=== PATIENT | female | born 1935 | race African-American/Black ===

== ENCOUNTER 2021-07-22 15:43 | Inpatient (IN) | payer OTHER, MEDICAID, SELFPAY ==
[2021-07-22] VITALS (7 sets, daily range): BP systolic 117–135; BP diastolic 51–76; PULSE 61–71; RESP 12–24; TEMP 36.2–36.8; O2SAT 98–100; BMI 41.8
--- NOTE | ~2021-07-22 | XR_ITS ---
EXAMINATION: XR chest 1V portable 07/23/2021 06:21 INDICATION: Acute renal insufficiency PROCEDURE: AP portable chest COMPARISON: No prior studies for comparison. FINDINGS: The lungs are clear. The cardiomediastinal silhouette is within normal limits. There are no pleural effusions. There is no pneumothorax suspected. IMPRESSION: 1: NO ACUTE CARDIOPULMONARY DISEASE. Reviewed, dictated and finalized at location A. [employer]
--- NOTE | ~2021-07-22 | US_ITS ---
US renal BI 07/23/2021 09:15 Procedure: Realtime transabdominal ultrasound of the kidneys and bladder. Indication: Acute renal insufficiency Comparison: No prior studies for comparison. Findings: Renal echotexture is normal bilaterally without hydronephrosis, contour deforming mass or r enal calculus. There are bilateral renal cysts measuring up to 2.4 cm and right kidney and up to 4.3 cm and the left kidney. The right kidney measures 9.3 cm and left kidney measures 8.3 cm. Bladder is not adequately visualized due to catheterization. Impression: 1: Bilateral renal cysts. Reviewed, dictated and finalized at location A. [facility] C[employer] ADMINISTRATOR Impression: 1: Bilateral renal cysts.
--- NOTE | ~2021-07-22 | CT_ITS ---
EXAMINATION: CT abdomen pelvis wo con EXAM DATE: 07/28/2021 15:06 INDICATION: abd pain . TECHNIQUE: Spiral CT of the abdomen and pelvis was performed without contrast. Axial, coronal and s agittal images of the abdomen and pelvis were reviewed. The dose-length product (DLP) for this exami nation was 1351.72 mGy-cm. The exposure was tailored according to patient size (auto mA exposure con trol), and iterative reconstruction (ASIR) was used as additional dose reduction technique. There is no prior study for comparison. FINDINGS: Possible 1.8 cm cystic mass in the pancreatic body. The differential diagnosis includes pse udocyst, intraductal papillary mucinous neoplasm (IPMN), mucinous cystic neoplasm (MCN), and the less common serous cystadenoma and neuroendocrine tumor. Correlate for history of pancreatitis. Gallbla dder is unremarkable. No biliary obstruction. Spleen, adrenal glands, liver are unremarkable.There is no nephrolithiasis or hydronephrosis. Renal c ysts, largest in the left kidney 4.5 cm. The uterus is not identified and has likely been surgically resected. The bladder is unremarkable. There is no retroperitoneal or pelvic lymphadenopathy. Th ere is mild scattered arteriosclerotic disease. Small umbilical fat-containing hernia. The appendix is normal. There is extensive descending and sigmoid colonic diverticulosis. No definite adjacent inflammation. The stomach and small bowel are unremarkable. There is expected amount of co lonic stool. No free intraperitoneal gas. The heart is normal in size. There are no pericardial or pleural effusions. Left lower lobe subsegmental atelectasis. Trace left pleural effusion. There are no osteoblastic or osteolytic lesions identified. IMPRESSION: 1. Colonic diverticulosis without definite adjacent inflammation. 2. Possible incidental pancreatic cystic mass. Consider one-year follow-up CT or MRI. 3. Left lower lobe subsegmental atelectasis, trace left pleural effusion. Reviewed, dictated and finalized at location B. CULTURE TECHNICIAN
--- NOTE | 2021-07-22 15:58 | ECG_ITS ---
Measurements Intervals [place] Rate: 64 P: SC: 0 QRS: 215 QRSD: 107 T: 168 QT: 411 QTc: 426 Interpretive Statements ATRIAL FIBRILLATION LIMB LEAD REVERSAL POOR R WAVE PROGRESSION, ANTERIOR LEADS BASELINE ARTIFACT- I, II ABNORMAL ECG Electronically Signed On 07-23-2021 7:07:46 ROCKET ENGINE MECHANIC by Bereket Fragoso D.O.
--- NOTE | 2021-07-22 16:16 | ED.NEUROSD ---
HPI - Neuro Symptoms/Deficit General Chief Complaint: Altered Mental Status Stated Complaint: neuro symptoms Time Seen by Provider: 07/22/21 16:02 Source: patient Mode of arrival: EMS Limitations: no limitations History of Present Illness HPI Narrative: Patient is an 85-year-old female complaining of slurred speech that started around 9 AM this morning accompanied by generalized weakness. Patient states that her weakness started approximately 2 weeks ago. Patient does admit to taking a pain medication, hydrocodone prior to the slurred speech this morning, which she takes for arthritis . Patient states that for the past 2 weeks she has not been able to ambulate due to her weakness. Patient claims that she usually ambulates with the help of a walker. Patient also states that she had a history of mini stroke approximately 10 years ago. Patient denies any visual disturbance, focal weakness or numbness, dizziness, headache, chest pain, shortness of breath, nausea, vomiting, fever or chills. Related Data Home Medications Medication Instructions Recorded Confirmed allopurinol 200 mg PO DAILY 07/22/21 07/22/21 atorvastatin 40 mg PO HS 07/22/21 07/22/21 benzonatate 200 mg PO TID PRN 07/22/21 07/22/21 carvedilol 3.125 mg PO BID 07/22/21 07/22/21 clopidogrel 75 mg PO DAILY 07/22/21 07/22/21 cyclobenzaprine 10 mg PO BID 07/22/21 07/22/21 furosemide 40 mg PO DAILY 07/22/21 07/22/21 gabapentin 300 mg PO HS 07/22/21 07/22/21 glimepiride 4 mg PO DAILY 07/22/21 07/22/21 hydrocodone-acetaminophen 1 tablet PO Q12-24H PRN 07/22/21 07/22/21 insulin glargine-lixisenatide 45 unit SUBCUT USEASDIRECTD 07/22/21 07/22/21 [Soliqua 100/33] ipratropium-albuterol [Combivent 1 puff INHALATION QID 07/22/21 07/22/21 Respimat] lisinopril 5 mg PO DAILY 07/22/21 07/22/21 pantoprazole 40 mg PO BID 07/22/21 07/22/21 sitagliptin 100 mg PO DAILY 07/22/21 07/22/21 tamoxifen 20 mg PO DAILY 07/22/21 07/22/21 Allergies Allergy/AdvReac Type Severity Reaction Status Date / Time No Known Allergies Allergy Verified 07/22/21 18:33 Review of Systems Review of Systems: All systems reviewed & are unremarkable except as noted in HPI and below Constitutional: Constitutional: Denies body ache(s), Denies chills, Denies excessive sweating, Denies fatigue, Denies fever(s), Denies headache(s), Denies lethargy, Denies malaise and Denies weight loss Eyes: Eyes: Denies blurry vision, Denies change in vision and Denies loss of vision ENT: Denies dizziness, Denies ear discharge, Denies headache(s), Denies lip swelling, Denies epistaxis, Denies nasal congestion, Denies neck pain, Denies throat swelling and Denies tongue swelling Cardiovascular: Cardiovascular: Denies chest pain, Denies chest pain at rest, Denies chest pain with activity, Denies diaphoresis, Denies rapid heart rate, Denies edema, Denies irregular heart rhythm, Denies lightheadedness, Denies palpitations, Denies dyspnea and Denies dyspnea on exertion Respiratory: Respiratory: Denies chest congestion, Denies cough, Denies hemoptysis, Denies dyspnea and Denies dyspnea on exertion Gastrointestinal: Gastrointestinal: Denies abdominal pain, Denies melena, Denies hematochezia, Denies diarrhea, Denies nausea, Denies vomiting and Denies hematemesis Musculoskeletal: Musculoskeletal: Denies abnormal gait, Denies deformity, Denies joint swelling, Denies limited range of motion, Denies neck pain and Denies numbness Neurologic: Denies abnormal gait, Denies confusion, Denies dizziness, Denies headache(s), Denies focal weakness, Denies loss of vision, Denies numbness, Denies Other visual disturbances and Denies Sensory deficit (Neuro) Psychiatric: Psychiatric: Denies confusion, Denies depression, Denies auditory hallucinations, Denies homicidal ideation and Denies suicidal ideation Endocrine: Endocrine: Denies cold intolerance, Denies excessive sweating, Denies fatigue, Denies heat intolerance and Denies palpitations Hematologic/Lymp
[2021-07-22 16:34] LABS: Basophils Absolute Auto 0.1 K/mm3 (0.0-0.1); Basophils Percent Auto 0.5 % (0.2-1.2); Eosinophils Absolute Auto 0.4 K/mm3 (0-0.3); Eosinophils Percent Auto 3.4 % (0-4.4); Hematocrit 30.9 % (37.0-47.0); Hemoglobin 9.4 g/dL (12.0-15.0); Immature Granulocyte Absolute 0.15 K/mm3 (0.00-0.031); Immature Granulocyte Percent A 1.2 % (0-0.5); Lymphocytes Absolute Auto 1.48 K/mm3 (0.9-3.2); Lymphocytes Percent Auto 11.6 % (18.3-44.2); Mean Corpuscular HGB Conc 30.4 g/dl (32-36); Mean Platelet Volume 9.6 fl (7.4-10.4); Monocytes Absolute Auto 0.9 K/mm3 (0.1-0.6); Neutrophils Absolute Auto 9.8 K/mm3 (1.3-6.7); Neutrophils Percent Auto 76.3 % (45.5-73.1); Platelet Count Result 595 k/mm3 (150-375); Red Blood Count 3.36 M/mm3 (4.2-5.4); Red Cell Distribution Width 16.1 % (11.5-14.5); White Blood Count 12.8 K/mm3 (4.5-10.0)
[2021-07-22 16:44] LABS: Anion Gap 8 mmol/L (8-16); Blood Urea Nitrogen 81 mg/dL (7-17); Carbon Dioxide 28 mmol/L (22-30); Chloride 96 mmol/L (98-107); Estimated CRCL calculation 9 ml/min; Estimated Glomerular Filt Rate 10; Glucose 90 mg/dL (65-110); INR 1.1; Partial Thromboplastin Time 34.4 SECONDS (22.3-36.8); Potassium 4.7 mmol/L (3.4-5.0); Prothrombin Time 13.6 Seconds (11.1-14.7); Sodium 132 mmol/L (137-145)
[2021-07-22 16:56] LABS: Troponin I 0.013 ng/mL (0.000-0.034)
[2021-07-22 19:11] LABS: SARS-CoV-2 RNA PCR Negative
[2021-07-22] MEDS: LACTATED RINGERS 1,000 ML 250 ML IV CONT (20:00)
[2021-07-22 20:06] LABS: Glucose Point of Care 48 mg/dl (65-105)
--- NOTE | 2021-07-22 20:09 | PC.NURSE ---
Pt has BS of 48, RN provided pt with orange juice and urged pt to eat dinner tray, pt acknowledged and she finished orange juice and is currently eating her lunch tray, pt continues a/o x4.
[2021-07-22 20:41] LABS: Glucose Point of Care 48 mg/dl (65-105)
[2021-07-22] MEDS: DEXTROSE 50% 25 GM/50 ML SYRINGE IV PUSH (20:50)
--- NOTE | 2021-07-22 20:51 | PC.NURSE ---
BS was retaken and results of 48 was received and relayed to Dr. Richardson, he provided orders to give pt amp of D50, RN acknowledged and medication was given.
--- NOTE | 2021-07-22 21:18 | PC.NURSE ---
BS obtained by RN, with reading of 130, pt continues a/o x4, notified.
[2021-07-22 21:19] LABS: Glucose Point of Care 130 mg/dl (65-105)
--- NOTE | 2021-07-22 21:50 | ADMGEN ---
This patient, Lanie Galeas, was admitted to 2 Medical Room 257-01 @ 2150. Patient/family oriented to hospital policies and general routines including ID bracelet, bed and alarms, visiting hours, pain management, procedures, bathroom and other care routines, personal items, smoking policy, room service/diet, and visiting hours. Information on how to activate the Rapid Response Team has been discussed. Patient/Family are encouraged to report perceived risks to care and to ask questions if they do not understand what they are told or what they should do.
[2021-07-22] MEDS: DEXTROSE 5%/0.45% SOD CHL 1,000 ML 90 ML IV CONT (22:24)
[2021-07-23] VITALS (11 sets, daily range): BP systolic 116–140; BP diastolic 50–62; PULSE 62–82; RESP 16–17; TEMP 36.2–36.6; O2SAT 95–98
--- NOTE | 2021-07-23 01:17 | PM.IMHP ---
H&P: HPI History of Present Illness Date/Time: 07/23/21 01:17 Chief Complaint: ALTERED MENTAL STATUS Narrative: This is an 85-year-old female who usually gets her care at [facility], past medical history significant for type 2 diabetes mellitus, gout, dyslipidemia, congestive heart failure, coronary artery disease, peripheral diabetic neuropathy, COPD. Patient was brought to the emergency room for evaluation of slurred speech. Patient states that she has been very weak and unable to walk for the last 2 weeks or so she usually ambulates using a walker. Patient denies any fevers, any rigors, any chills, any cough, any sputum, production denies any focal sensorimotor deficit, no chest pain, no pain or burning with urination, no nausea ,no vomiting no diarrhea ,no abdominal pain ,no syncope, near syncope, lightheadedness or dizziness. Preliminary workup was significant for BUN of 80 creatinine of 5 sodium 132 Accu-Chek 48. Patient is been admitted for further evaluation management and treatment. Review of Systems Review of Systems: Generalized with Constitutional: Constitutional: Denies chills, Denies fatigue, Denies fever(s), Denies frequent falls, Denies malaise, Denies night sweats, Denies poor appetite and Denies weakness Eyes: Eyes: Denies change in vision ENT: Denies dysphagia, Denies vertigo, Denies dizziness, Denies nasal congestion, Denies nasal discharge, Denies nasal obstruction and Denies odynophagia Cardiovascular: Cardiovascular: Denies pedal edema, Denies claudication, Denies leg edema, Denies lightheadedness, Denies radiating jaw, neck or arm pain, Denies palpitations, Denies dyspnea on exertion, Denies orthopnea and Denies paroxysmal nocturnal dyspnea Respiratory: Respiratory: Denies cough, Denies excessive phlegm production and Denies dyspnea Gastrointestinal: Gastrointestinal: Denies abdominal pain, Denies dyspepsia, Denies heartburn, Denies diarrhea, Denies nausea and Denies vomiting Genitourinary: Genitourinary: Denies dysuria and Denies flank pain Musculoskeletal: Musculoskeletal: Denies arthralgias, Denies joint swelling and Reports muscle weakness Integumentary/Breasts: Skin/Breast: Denies rash Neurologic: Denies vertigo, Denies dizziness, Denies focal weakness and Denies Sensory deficit (Neuro) Psychiatric: Psychiatric: Reports no additional psychiatric complaints and Reports as per HPI Endocrine: Endocrine: Denies cold intolerance, Denies heat intolerance, Denies polyphagia, Denies polydipsia and Denies palpitations Hematologic/Lymphatic: Hematologic/Lymphatic: Reports no additional hematologic/lymphatic complaints and Reports as per HPI Allergic/Immunologic: Allergic/Immunologic: Reports no additional allergic/immunologic complaints and Reports as per HPI [facility] Family History Family History (Updated 07/22/21 @ 22:14 by Janie Easton RN) Mother Diabetes mellitus Acute myocardial infarction Father Acute myocardial infarction Grandparent Cerebrovascular accident Social History Social History Smoking status: Former smoker Alcohol intake: never Substance use: never Substance use type: does not use Spiritual care concerns: No Meds Home Medications and Allergies Home Medications Medication Instructions Recorded Confirmed Type allopurinol 200 mg PO DAILY 07/22/21 07/22/21 History atorvastatin 40 mg PO HS 07/22/21 07/22/21 History benzonatate 200 mg PO TID PRN 07/22/21 07/22/21 History carvedilol 3.125 mg PO BID 07/22/21 07/22/21 History clopidogrel 75 mg PO DAILY 07/22/21 07/22/21 History cyclobenzaprine 10 mg PO BID 07/22/21 07/22/21 History furosemide 40 mg PO DAILY 07/22/21 07/22/21 History gabapentin 300 mg PO HS 07/22/21 07/22/21 History glimepiride 4 mg PO DAILY 07/22/21 07/22/21 History hydrocodone-acetaminophen 1 tablet PO Q12-24H PRN 07/22/21 07/22/21 History insulin glargine-lixisenatide 45 unit SUBCUT USEASDIRECTD 07/22/21 07/22/21 History [Soliqua 100/3
[2021-07-23 01:56] LABS: Glucose Point of Care 150 mg/dl (65-105)
[2021-07-23 05:41] LABS: Glucose Point of Care 136 mg/dl (65-105)
[2021-07-23 06:28] LABS: Add Urine Microscopic? YES; Appearance Urine Clear (Clear); Bacteria Urine 4+ /hpf; Bilirubin Urine Negative (Negative); Blood Urine Negative (Negative); Color Urine Yellow (Yellow); Glucose Urine UA Negative (Negative); Ketones Urine Negative (Negative); Leukocyte Esterase Ur Negative LEU/UL (Negative); Nitrate Urine Negative (Negative); Protein Urine Negative (Negative); RBC Urine 0-2 /hpf (0-2); Specific Grav Ur 1.014 (1.001-1.035); Squamous Epithelial Cell Urine Moderate /hpf (Few); Transitional Epi Cells Urine Rare /hpf (None Seen)
[2021-07-23 07:32] LABS: Basophils Percent Auto 0.3 % (0.2-1.2); Eosinophils Absolute Auto 0.4 K/mm3 (0-0.3); Eosinophils Percent Auto 3.5 % (0-4.4); Hematocrit 30.2 % (37.0-47.0); Hemoglobin 9.3 g/dL (12.0-15.0); Immature Granulocyte Absolute 0.08 K/mm3 (0.00-0.031); Immature Granulocyte Percent A 0.7 % (0-0.5); Lymphocytes Absolute Auto 1.01 K/mm3 (0.9-3.2); Lymphocytes Percent Auto 8.8 % (18.3-44.2); Mean Corpuscular HGB Conc 30.8 g/dl (32-36); Mean Corpuscular Hemoglobin 28.3 pg (26-34); Mean Corpuscular Volume 91.8 fl (80-100); Mean Platelet Volume 9.5 fl (7.4-10.4); Monocytes Absolute Auto 0.8 K/mm3 (0.1-0.6); Monocytes Percent Auto 6.7 % (2.6-8.5); Neutrophils Absolute Auto 9.2 K/mm3 (1.3-6.7); Platelet Count Result 611 k/mm3 (150-375); Red Blood Count 3.29 M/mm3 (4.2-5.4); Red Cell Distribution Width 16.2 % (11.5-14.5); White Blood Count 11.5 K/mm3 (4.5-10.0)
[2021-07-23 07:44] LABS: Anion Gap 8 mmol/L (8-16); Blood Urea Nitrogen 82 mg/dL (7-17); Calcium 8.6 mg/dL (8.4-10.2); Carbon Dioxide 25 mmol/L (22-30); Chloride 99 mmol/L (98-107); Estimated CRCL calculation 13 ml/min; Estimated Glomerular Filt Rate 17; Glucose 169 mg/dL (65-110); Sodium 132 mmol/L (137-145)
[2021-07-23] MEDS: allopurinoL 100 MG TABLET 200 MG PO (08:02)
[2021-07-23] MEDS: carvediloL 3.125 MG TABLET PO ×2 (08:02→21:27)
[2021-07-23] MEDS: PANTOPRAZOLE 40 MG TABLET PO ×2 (08:03→16:46)
[2021-07-23] MEDS: CLOPIDOGREL BISULFATE 75 MG TABLET PO (08:03)
[2021-07-23] MEDS: TAMOXIFEN CITRATE (*CHEMO) 10 MG TABLET 20 MG PO (08:03)
[2021-07-23 08:10] LABS: Glucose Point of Care 158 mg/dl (65-105)
--- NOTE | 2021-07-23 10:50 | PM.IMPN ---
Progress Note: A&P Assessment and Plan (1) NANCY (acute kidney injury): Code(s): N17.9 - Acute kidney failure, unspecified Status: Acute Assessment and Plan: LIKELY SECONDARY TO PRE RENAL AZOTEMIA WILL HOLD LASIX WILL HOLD LISINOPRIL IV FLUIDS REPEAT BMP IN A.M. RENAL ULTRASOUND (2) Hypoglycemia: Code(s): E16.2 - Hypoglycemia, unspecified Status: Acute Assessment and Plan: WILL HOLD SITAGLIPTIN WILL HOLD GLIMEPIRIDE WILL HOLD INSULIN CONTINUE TO MONITOR RESTART INSULIN NEEDED (3) Generalized weakness: Code(s): R53.1 - Weakness Status: Acute Assessment and Plan: LIKELY SECONDARY TO DEHYDRATION ACUTE RENAL FAILURE AND HYPOGLYCEMIA PT OT (4) Hyponatremia with decreased serum osmolality: Code(s): E87.1 - Hypo-osmolality and hyponatremia Status: Acute Assessment and Plan: LIKELY SECONDARY TO DIURESIS RECEIVING IV FLUIDS DAILY BMP Subjective Date/time seen: 07/23/21 10:50 Interval history: I agree with current assessment and plan. Will continue to monitor. Objective Data Vital Signs Vital Signs: Vital Signs - 24 hr 07/22/21 15:47 07/22/21 15:59 07/22/21 18:26 Temperature 36.2 C L Pulse Rate 66 64 62 Respiratory Rate 24 H 18 18 Blood Pressure 125/59 L 125/59 L 117/76 Pulse Oximetry 100 99 98 07/22/21 19:51 07/22/21 21:56 07/22/21 22:00 Temperature 36.7 C 36.6 C Pulse Rate 61 68 71 Respiratory Rate 12 18 Blood Pressure 135/51 L Pulse Oximetry 99 99 07/22/21 22:01 07/23/21 00:00 07/23/21 04:00 Temperature 36.8 C Pulse Rate 61 69 82 Respiratory Rate 16 Blood Pressure 125/74 Pulse Oximetry 98 07/23/21 04:46 07/23/21 08:00 07/23/21 08:02 Temperature 36.6 C Pulse Rate 70 73 66 Respiratory Rate 17 Blood Pressure 116/62 Pulse Oximetry 97 Intake/Output Intake/Output: Intake & Output 07/20/21 07/21/21 07/22/21 07/23/21 23:59 23:59 23:59 23:59 Intake Total 440 Balance 440 Meds/Results Medications: Active Medications Generic Name Dose Route Start Last Admin Trade Name Freq PRN Reason Stop Dose Admin Hydrocodone Bitart/Acetaminophen 1 tab 07/23/21 05:32 Hydrocodone/Acetaminophen (*Crx) 7.5-325 Mg Tablet PO Q12H PRN Pain Rated 4-6 Allopurinol 200 mg 07/23/21 08:00 07/23/21 08:02 Allopurinol 100 Mg Tablet PO 200 mg DAILY@0800 MARY Administration Atorvastatin Calcium 40 mg 07/23/21 21:00 Atorvastatin 40 Mg Tablet PO HS MARY Benzonatate 200 mg 07/23/21 05:32 Benzonatate 100 Mg Capsule PO TID PRN Cough Carvedilol 3.125 mg 07/23/21 09:00 07/23/21 08:02 Carvedilol 3.125 Mg Tablet PO 3.125 mg Q12HR MARY Administration Clopidogrel Bisulfate 75 mg 07/23/21 09:00 07/23/21 08:03 Clopidogrel Bisulfate 75 Mg Tablet PO 75 mg DAILY MARY Administration Cyclobenzaprine HCl 10 mg 07/23/21 10:20 Cyclobenzaprine Hcl 10 Mg Tablet PO Q12HR [facility] Dextrose 12.5 gm 07/22/21 19:20 Dextrose 50% 25 Gm/50 Ml Syringe IV PUSH PRN PRN Hypoglycemia Protocol Enoxaparin Sodium 30 mg 07/23/21 09:00 Enoxaparin 30 Mg/0.3 Ml Syringe SUB-Q DAILY [facility] Gabapentin 300 mg 07/23/21 21:00 Gabapentin 300 Mg Capsule PO HS [facility] Glucagon 1 mg 07/22/21 19:20 Glucagon For Inj 1 Mg Vial IM PRN PRN Hypoglycemia Protocol Glucose 15 gm 07/22/21 19:20 Glucose Oral Gel 15 Gm Of Glucse In 37.5 Gm Tube PO PRN PRN Hypoglycemia Protocol Dextrose/Sodium Chloride 1,000 mls @ 90 mls/hr 07/22/21 20:50 07/22/21 22:24 Dextrose 5% Sodium Chloride 0.45% IV CONT 90 mls/hr .Q11H7M MARY Administration Pantoprazole Sodium 40 mg 07/23/21 09:00 07/23/21 08:03 Pantoprazole 40 Mg Tablet PO 40 mg BID MARY Administration Tamoxifen Citrate 20 mg 07/23/21 09:00 07/23/21 08:03 Tamoxifen Citrate (*Chemo) 10 Mg Tablet PO 08/22/21 08:59 20 mg DAILY
[2021-07-23 11:50] LABS: Glucose Point of Care 184 mg/dl (65-105)
[2021-07-23] MEDS: CYCLOBENZAPRINE HCL 10 MG TABLET PO ×2 (12:08→21:26)
[2021-07-23] MEDS: ENOXAPARIN 30 MG/0.3 ML SYRINGE SUB-Q (12:08)
[2021-07-23] MEDS: DEXTROSE 5%/0.45% SOD CHL 1,000 ML 90 ML IV CONT ×2 (12:08→21:25)
[2021-07-23 16:44] LABS: Glucose Point of Care 189 mg/dl (65-105)
[2021-07-23 21:14] LABS: Glucose Point of Care 164 mg/dl (65-105)
[2021-07-23] MEDS: GABAPENTIN 300 MG CAPSULE PO (21:26)
[2021-07-23] MEDS: ATORVASTATIN 40 MG TABLET PO (21:26)
[2021-07-24] VITALS (11 sets, daily range): BP systolic 131–138; BP diastolic 42–56; PULSE 60–80; RESP 16–28; TEMP 36.1–36.8; O2SAT 98–100
[2021-07-24 05:48] LABS: Mean Corpuscular HGB Conc 30.8 g/dl (32-36); Mean Corpuscular Hemoglobin 28.2 pg (26-34); Mean Corpuscular Volume 91.5 fl (80-100); Mean Platelet Volume 9.8 fl (7.4-10.4); Platelet Count Result 554 k/mm3 (150-375); Red Blood Count 2.84 M/mm3 (4.2-5.4); Red Cell Distribution Width 15.9 % (11.5-14.5); White Blood Count 10.4 K/mm3 (4.5-10.0)
[2021-07-24 05:49] LABS: Glucose Point of Care 159 mg/dl (65-105)
[2021-07-24 06:00] LABS: Potassium 4.4 mmol/L (3.4-5.0)
[2021-07-24 07:23] LABS: Anion Gap 4 mmol/L (8-16); Blood Urea Nitrogen 65 mg/dL (7-17); Calcium 8.2 mg/dL (8.4-10.2); Carbon Dioxide 25 mmol/L (22-30); Chloride 100 mmol/L (98-107); Estimated CRCL calculation 20 ml/min; Estimated Glomerular Filt Rate 27; Glucose 162 mg/dL (65-110); Sodium 129 mmol/L (137-145)
[2021-07-24 07:42] LABS: Glucose Point of Care 152 mg/dl (65-105)
[2021-07-24] MEDS: PANTOPRAZOLE 40 MG TABLET PO ×2 (07:59→16:38)
[2021-07-24] MEDS: TAMOXIFEN CITRATE (*CHEMO) 10 MG TABLET 20 MG PO (07:59)
[2021-07-24] MEDS: CLOPIDOGREL BISULFATE 75 MG TABLET PO (07:59)
[2021-07-24] MEDS: carvediloL 3.125 MG TABLET PO ×2 (07:59→21:05)
[2021-07-24] MEDS: allopurinoL 100 MG TABLET 200 MG PO (07:59)
[2021-07-24] MEDS: ENOXAPARIN 30 MG/0.3 ML SYRINGE SUB-Q (07:59)
[2021-07-24] MEDS: CYCLOBENZAPRINE HCL 10 MG TABLET PO ×2 (07:59→21:05)
[2021-07-24] MEDS: DEXTROSE 5%/0.45% SOD CHL 1,000 ML 90 ML IV CONT (08:00)
--- NOTE | 2021-07-24 09:41 | P.PNIM_ITS ---
Progress Note: A&P Assessment and Plan (1) NANCY (acute kidney injury): Code(s): N17.9 - Acute kidney failure, unspecified Status: Acute Assessment and Plan: BUN/CR 81/ 5.00 ,82/3.20, 65/2.10 improving unsure of baseline LIKELY SECONDARY TO PRE RENAL AZOTEMIA WILL HOLD LASIX and lisinopril Continue IV FLUIDS challenge REPEAT BMP IN A.M. RENAL ULTRASOUND indicates bilateral renal cyst (2) Hypoglycemia: Code(s): E16.2 - Hypoglycemia, unspecified Status: Acute Assessment and Plan: Resolved WILL HOLD SITAGLIPTIN WILL HOLD GLIMEPIRIDE WILL HOLD INSULIN CONTINUE TO MONITOR RESTART INSULIN NEEDED (3) Generalized weakness: Code(s): R53.1 - Weakness Status: Acute Assessment and Plan: LIKELY SECONDARY TO DEHYDRATION ACUTE RENAL FAILURE AND HYPOGLYCEMIA PT OT consulted (4) Hyponatremia with decreased serum osmolality: Code(s): E87.1 - Hypo-osmolality and hyponatremia Status: Acute Assessment and Plan: LIKELY SECONDARY TO DIURESIS Sodium 132>132>129 worsening RECEIVING IV FLUIDS may possible need to be put on fluid restriction if no improvement or consult to Nephrology DAILY BMP (5) Diabetes mellitus: Code(s): E11.9 - Type 2 diabetes mellitus without complications Status: Acute Assessment and Plan: * Blood sugar 152 * Accu-Cheks with hyperglycemia and sliding scale * Discontinue D5 0.45 % ns and started normal saline * Will restart medication when appropriate * Will adjust medications needed Continue to hold SITAGLIPTIN and GLIMEPIRIDE home medication * Continue diabetic diet (6) Gout: Code(s): M10.9 - Gout, unspecified Status: Acute Assessment and Plan: * Continue allopurinol (7) Dyslipidemia: Code(s): E78.5 - Hyperlipidemia, unspecified Status: Acute Assessment and Plan: * Continue statins and Plavix (8) CHF (congestive heart failure): Code(s): I50.9 - Heart failure, unspecified Status: Acute Assessment and Plan: * Lasix on hold,Will restart Lasix when appropriate * BNP for the a.m. * Will order daily weights and I's and O's * Eyes and nose currently +1250 * Will restart Lasix when appropriate * Chest x-ray on admission indicates no acute cardiopulmonary disease * Will cautiously hydrate patient (9) Neuropathy, diabetic: Code(s): E11.40 - Type 2 diabetes mellitus with diabetic neuropathy, unspecified Status: Acute Assessment and Plan: * Continue gabapentin (10) COPD (chronic obstructive pulmonary disease): Code(s): J44.9 - Chronic obstructive pulmonary disease, unspecified Status: Acute Assessment and Plan: * Stable * Ordered p.r.n. albuterol (11) Transient ischemic attack (TIA): Code(s): G45.9 - Transient cerebral ischemic attack, unspecified Status: Acute Assessment and Plan: * Continue checks q.4 hours * Will possibly need a neuro consult * For now continue atorvastatin with Plavix may need to add aspirin Subjective Date/time seen: 07/24/21 09:41 patient's night was uneventful. She has no complaints at this time she is alert and orientated x4 with no neurovascular deficiencies. She is concerned about whether or not she is able to walk order PT OT for this patient. The patient denies SOB, CP, palpitation, extremity numbness, lightheadedness, dizziness, constipation, diarrhea, chills, or fever. Review of Systems Review of Systems: All systems reviewed & are
--- NOTE | 2021-07-24 09:41 | PM.IMPN ---
Progress Note: A&P Assessment and Plan (1) NANCY (acute kidney injury): Code(s): N17.9 - Acute kidney failure, unspecified Status: Acute Assessment and Plan: BUN/CR 81/ 5.00 ,82/3.20, 65/2.10 improving unsure of baseline LIKELY SECONDARY TO PRE RENAL AZOTEMIA WILL HOLD LASIX and lisinopril Continue IV FLUIDS challenge REPEAT BMP IN A.M. RENAL ULTRASOUND indicates bilateral renal cyst (2) Hypoglycemia: Code(s): E16.2 - Hypoglycemia, unspecified Status: Acute Assessment and Plan: Resolved WILL HOLD SITAGLIPTIN WILL HOLD GLIMEPIRIDE WILL HOLD INSULIN CONTINUE TO MONITOR RESTART INSULIN NEEDED (3) Generalized weakness: Code(s): R53.1 - Weakness Status: Acute Assessment and Plan: LIKELY SECONDARY TO DEHYDRATION ACUTE RENAL FAILURE AND HYPOGLYCEMIA PT OT consulted (4) Hyponatremia with decreased serum osmolality: Code(s): E87.1 - Hypo-osmolality and hyponatremia Status: Acute Assessment and Plan: LIKELY SECONDARY TO DIURESIS Sodium 132>132>129 worsening RECEIVING IV FLUIDS may possible need to be put on fluid restriction if no improvement or consult to Nephrology DAILY BMP (5) Diabetes mellitus: Code(s): E11.9 - Type 2 diabetes mellitus without complications Status: Acute Assessment and Plan: Blood sugar 152 Accu-Cheks with hyperglycemia and sliding scale Discontinue D5 0.45 % ns and started normal saline Will restart medication when appropriate Will adjust medications needed Continue to hold SITAGLIPTIN and GLIMEPIRIDE home medication Continue diabetic diet (6) Gout: Code(s): M10.9 - Gout, unspecified Status: Acute Assessment and Plan: Continue allopurinol (7) Dyslipidemia: Code(s): E78.5 - Hyperlipidemia, unspecified Status: Acute Assessment and Plan: Continue statins and Plavix (8) CHF (congestive heart failure): Code(s): I50.9 - Heart failure, unspecified Status: Acute Assessment and Plan: Lasix on hold,Will restart Lasix when appropriate BNP for the a.m. Will order daily weights and I's and O's Eyes and nose currently +1250 Will restart Lasix when appropriate Chest x-ray on admission indicates no acute cardiopulmonary disease Will cautiously hydrate patient (9) Neuropathy, diabetic: Code(s): E11.40 - Type 2 diabetes mellitus with diabetic neuropathy, unspecified Status: Acute Assessment and Plan: Continue gabapentin (10) COPD (chronic obstructive pulmonary disease): Code(s): J44.9 - Chronic obstructive pulmonary disease, unspecified Status: Acute Assessment and Plan: Stable Ordered p.r.n. albuterol (11) Transient ischemic attack (TIA): Code(s): G45.9 - Transient cerebral ischemic attack, unspecified Status: Acute Assessment and Plan: Continue checks q.4 hours Will possibly need a neuro consult For now continue atorvastatin with Plavix may need to add aspirin Subjective Date/time seen: 07/24/21 09:41 patient's night was uneventful. She has no complaints at this time she is alert and orientated x4 with no neurovascular deficiencies. She is concerned about whether or not she is able to walk order PT OT for this patient. The patient denies SOB, CP, palpitation, extremity numbness, lightheadedness, dizziness, constipation, diarrhea, chills, or fever. Review of Systems Review of Systems: All systems reviewed & are unremarkable except as noted in HPI and below Exam Narrative: GENERAL: Obese geriatric female, in no apparent distress. Patient alert and orientated x4. Okay okay she had a rough year where she so now that the right is not really 21 0 have a whole A 14 organ system Review of Systems was performed and pertinent positives included in the HPI, otherwise remaining ROS is negative. He has had a bit of a room with her for mental status HEAD: normocephalic, atra
[2021-07-24 11:22] LABS: Glucose Point of Care 245 mg/dl (65-105)
[2021-07-24] MEDS: INSULIN ASPART (*BKC) 100 UNITS/ML SUB-Q ×2 (12:02→16:38)
[2021-07-24] MEDS: SODIUM CHLORIDE 0.9% IV 1,000 ML 90 ML IV CONT (12:02)
[2021-07-24 16:34] LABS: Glucose Point of Care 288 mg/dl (65-105)
[2021-07-24] MEDS: ATORVASTATIN 40 MG TABLET PO (21:05)
[2021-07-24] MEDS: GABAPENTIN 300 MG CAPSULE PO (21:05)
[2021-07-24 22:14] LABS: Glucose Point of Care 171 mg/dl (65-105)
[2021-07-25] VITALS (11 sets, daily range): BP systolic 123–128; BP diastolic 54–72; PULSE 62–77; RESP 18–20; TEMP 36.6–36.9; O2SAT 97–98
[2021-07-25] MEDS: SODIUM CHLORIDE 0.9% IV 1,000 ML 90 ML IV CONT (01:22)
[2021-07-25] MEDS: ALTEPLASE 2 MG VIAL (CATHFLO) IV PUSH ×2 (06:10→06:12)
[2021-07-25 07:55] LABS: Glucose Point of Care 157 mg/dl (65-105)
[2021-07-25] MEDS: allopurinoL 100 MG TABLET 200 MG PO (08:58)
[2021-07-25] MEDS: CLOPIDOGREL BISULFATE 75 MG TABLET PO (08:59)
[2021-07-25] MEDS: carvediloL 3.125 MG TABLET PO ×2 (08:59→20:11)
[2021-07-25] MEDS: CYCLOBENZAPRINE HCL 10 MG TABLET PO ×2 (09:02→20:11)
[2021-07-25] MEDS: ENOXAPARIN 30 MG/0.3 ML SYRINGE SUB-Q (09:02)
[2021-07-25] MEDS: TAMOXIFEN CITRATE (*CHEMO) 10 MG TABLET 20 MG PO (09:03)
[2021-07-25] MEDS: PANTOPRAZOLE 40 MG TABLET PO ×2 (09:03→17:11)
[2021-07-25 09:21] LABS: Hematocrit 26.7 % (37.0-47.0); Hemoglobin 8.1 g/dL (12.0-15.0); Mean Corpuscular HGB Conc 30.3 g/dl (32-36); Mean Corpuscular Volume 92.4 fl (80-100); Mean Platelet Volume 9.6 fl (7.4-10.4); Platelet Count Result 576 k/mm3 (150-375); Red Blood Count 2.89 M/mm3 (4.2-5.4); Red Cell Distribution Width 15.9 % (11.5-14.5)
[2021-07-25 09:40] LABS: NT Pro B Type Natriuretic Pept 2340 pg/mL (5-100)
[2021-07-25 09:46] LABS: Alanine Aminotransferase 18 U/L (4-35); Albumin Level 3.2 g/dL (3.5-5.1); Alkaline Phosphatase 102 U/L (38-126); Anion Gap 3 mmol/L (8-16); Aspartate Amino Transferase 37 U/L (14-36); Bilirubin,Total 0.3 mg/dL (0.2-1.3); Blood Urea Nitrogen 42 mg/dL (7-17); Calcium 8.5 mg/dL (8.4-10.2); Carbon Dioxide 26 mmol/L (22-30); Chloride 103 mmol/L (98-107); Estimated CRCL calculation 28 ml/min; Estimated Glomerular Filt Rate 40; Glucose 189 mg/dL (65-110); Magnesium 2.4 mg/dL (1.6-2.3); Potassium 4.7 mmol/L (3.4-5.0); Sodium 132 mmol/L (137-145)
--- NOTE | 2021-07-25 10:14 | PM.IMPN ---
Progress Note: A&P Assessment and Plan (1) NANCY (acute kidney injury): Code(s): N17.9 - Acute kidney failure, unspecified Status: Acute Assessment and Plan: BUN/CR 81/ 5.00 -->82/3.20-->65/2.10-->42/1.5, improving unsure of baseline Likely 2/2 azotemia Continue to hold Lasix and lisinopril l Continue IVF Renal US-->indicates bilateral renal cyst Monitor (2) Hypoglycemia: Code(s): E16.2 - Hypoglycemia, unspecified Status: Acute Assessment and Plan: Resolved Hypoglycemic protocol Initially held hypoglycemics Monitor (3) Generalized weakness: Code(s): R53.1 - Weakness Status: Acute Assessment and Plan: Likely 2/2 above PT/OT consulted (4) Hyponatremia with decreased serum osmolality: Code(s): E87.1 - Hypo-osmolality and hyponatremia Status: Acute Assessment and Plan: Likely 2/2 diuresis Improving Sodium 132>132>129-->132 today Continue with IVF Consider fluid restriction if worsening Monitor (5) Diabetes mellitus: Code(s): E11.9 - Type 2 diabetes mellitus without complications Status: Acute Assessment and Plan: BG 157 Accu-Cheks with hyperglycemia and sliding scale S/p D5 0.45 % ns and started normal saline Adjust medications needed Continue to hold SITAGLIPTIN and GLIMEPIRIDE home medication Continue diabetic diet (6) Gout: Code(s): M10.9 - Gout, unspecified Status: Acute Assessment and Plan: Continue allopurinol (7) Dyslipidemia: Code(s): E78.5 - Hyperlipidemia, unspecified Status: Acute Assessment and Plan: Continue statin and Plavix (8) CHF (congestive heart failure): Code(s): I50.9 - Heart failure, unspecified Status: Acute Assessment and Plan: No acute exacerbation Lasix on hold, will restart Lasix when appropriate BNP 2340 Daily weights and I/Os Chest x-ray on admission indicates no acute cardiopulmonary disease Will cautiously hydrate patient (9) Neuropathy, diabetic: Code(s): E11.40 - Type 2 diabetes mellitus with diabetic neuropathy, unspecified Status: Acute Assessment and Plan: Continue gabapentin (10) COPD (chronic obstructive pulmonary disease): Code(s): J44.9 - Chronic obstructive pulmonary disease, unspecified Status: Acute Assessment and Plan: Stable Ordered p.r.n. albuterol (11) Transient ischemic attack (TIA): Code(s): G45.9 - Transient cerebral ischemic attack, unspecified Status: Acute Assessment and Plan: Continue checks q.4 hours Consider neuro consult Continue atorvastatin with Plavix may need to add aspirin (12) Anemia: Code(s): D64.9 - Anemia, unspecified Status: Acute Assessment and Plan: Hgb 8.1 Normocytic, normochromic ?Chronic disease, iron deficiency Will check iron panel Transfuse if <7 Monitor Subjective Date/time seen: 07/25/21 10:14 Interval history: Pt seen and evaluate; labs, vs, and diagnostic results reviewed; pt AOx4, no acute events overnight; denies any JONES, dizziness, CP, SOB Review of Systems Review of Systems: All systems reviewed & are unremarkable except as noted in HPI and below Exam Const: General: no acute distress, alert and awake Orientation/consciousness: patient oriented x3 HENMT: Head: normocephalic and atraumatic Ears: hearing grossly normal bilaterally and external ears normal Face and sinus: face symmetric Mouth: Yes Normal oral and palatal mucosa present Eyes: EOM: EOMs intact bilaterally Neck: Neck: full ROM, trachea midline and no JVD Resp: Effort & Inspection: normal respiratory effort Auscultation: clear to auscultation bilaterally Cardio: Rate: regular rate Rhythm: regular rhythm Heart sounds: S1 normal heart sound present and S2 normal heart sound present GI: Auscultation: normal bowel sounds : General: Yes no CVA tenderness Skin: General skin exam: normal color R
[2021-07-25 11:52] LABS: Glucose Point of Care 210 mg/dl (65-105)
[2021-07-25] MEDS: INSULIN ASPART (*BKC) 100 UNITS/ML SUB-Q ×2 (12:01→17:10)
[2021-07-25 17:10] LABS: Glucose Point of Care 225 mg/dl (65-105)
[2021-07-25] MEDS: ATORVASTATIN 40 MG TABLET PO (20:11)
[2021-07-25] MEDS: GABAPENTIN 300 MG CAPSULE PO (20:11)
[2021-07-25 20:37] LABS: Glucose Point of Care 177 mg/dl (65-105)
[2021-07-26] VITALS (12 sets, daily range): BP systolic 130–148; BP diastolic 46–53; PULSE 61–85; RESP 16–20; TEMP 36.3–37.2; O2SAT 91–100
[2021-07-26] MEDS: SODIUM CHLORIDE 0.9% IV 1,000 ML 50 ML IV CONT ×2 (01:49→21:00)
[2021-07-26 05:53] LABS: Hematocrit 23.9 % (37.0-47.0); Hemoglobin 7.3 g/dL (12.0-15.0); Mean Corpuscular HGB Conc 30.5 g/dl (32-36); Mean Corpuscular Hemoglobin 27.3 pg (26-34); Mean Corpuscular Volume 89.5 fl (80-100); Mean Platelet Volume 9.6 fl (7.4-10.4); Platelet Count Result 582 k/mm3 (150-375); Red Blood Count 2.67 M/mm3 (4.2-5.4); Red Cell Distribution Width 15.9 % (11.5-14.5); White Blood Count 10.8 K/mm3 (4.5-10.0)
[2021-07-26 06:10] LABS: Anion Gap 6 mmol/L (8-16); Blood Urea Nitrogen 31 mg/dL (7-17); Calcium 8.4 mg/dL (8.4-10.2); Carbon Dioxide 25 mmol/L (22-30); Chloride 103 mmol/L (98-107); Estimated CRCL calculation 29 ml/min; Estimated Glomerular Filt Rate 44; Glucose 154 mg/dL (65-110); Potassium 4.7 mmol/L (3.4-5.0); Sodium 134 mmol/L (137-145)
[2021-07-26] MEDS: HYDROcodone/acetaminophen (*CRX) 7.5-325 MG TABLET 1 TAB PO (06:32)
[2021-07-26 06:55] LABS: Iron < 10 ug/dL (37-170)
[2021-07-26 07:05] LABS: Percent Iron Saturation < 6 % (20-50)
[2021-07-26 08:03] LABS: Glucose Point of Care 171 mg/dl (65-105)
[2021-07-26] MEDS: CLOPIDOGREL BISULFATE 75 MG TABLET PO (08:09)
[2021-07-26] MEDS: carvediloL 3.125 MG TABLET PO ×2 (08:09→20:59)
[2021-07-26] MEDS: allopurinoL 100 MG TABLET 200 MG PO (08:09)
[2021-07-26] MEDS: CYCLOBENZAPRINE HCL 10 MG TABLET PO ×2 (08:10→20:59)
[2021-07-26] MEDS: PANTOPRAZOLE 40 MG TABLET PO ×2 (08:10→16:25)
[2021-07-26] MEDS: ENOXAPARIN 30 MG/0.3 ML SYRINGE SUB-Q (08:10)
[2021-07-26] MEDS: TAMOXIFEN CITRATE (*CHEMO) 10 MG TABLET 20 MG PO (08:10)
[2021-07-26 11:25] LABS: Glucose Point of Care 189 mg/dl (65-105)
--- NOTE | 2021-07-26 14:48 | PCPTNOTE ---
Upon entering, nursing staff was exiting stating they just returned pt to the bed. Pt declined participation in PT session despite encouragement and education. Pt perseverates on wanting to work on upper body strengthening. QUINONEZ contacted to inform pt is requesting OT to return for UE ther ex.
[2021-07-26 16:19] LABS: Glucose Point of Care 238 mg/dl (65-105)
[2021-07-26] MEDS: INSULIN ASPART (*BKC) 100 UNITS/ML SUB-Q (16:26)
--- NOTE | 2021-07-26 17:03 | PM.IMPN ---
Progress Note: A&P Assessment and Plan (1) Anemia: Code(s): D64.9 - Anemia, unspecified Status: Acute (2) COPD (chronic obstructive pulmonary disease): Code(s): J44.9 - Chronic obstructive pulmonary disease, unspecified Status: Acute (3) Neuropathy, diabetic: Code(s): E11.40 - Type 2 diabetes mellitus with diabetic neuropathy, unspecified Status: Acute (4) CHF (congestive heart failure): Code(s): I50.9 - Heart failure, unspecified Status: Acute (5) Dyslipidemia: Code(s): E78.5 - Hyperlipidemia, unspecified Status: Acute (6) Gout: Code(s): M10.9 - Gout, unspecified Status: Acute (7) Diabetes mellitus: Code(s): E11.9 - Type 2 diabetes mellitus without complications Status: Acute (8) Generalized weakness: Code(s): R53.1 - Weakness Status: Acute (9) NANCY (acute kidney injury): Code(s): N17.9 - Acute kidney failure, unspecified Status: Acute (10) Hypoglycemia: Code(s): E16.2 - Hypoglycemia, unspecified Status: Acute (11) Hyponatremia with decreased serum osmolality: Code(s): E87.1 - Hypo-osmolality and hyponatremia Status: Acute (12) Transient ischemic attack (TIA): Code(s): G45.9 - Transient cerebral ischemic attack, unspecified Status: Acute Additional Plan 07/26/21 iron studies reviewed BG close to goal NANCY improving may need one unit PRBC given advanced age heart disease and symptomatic anemia Subjective Date/time seen: 07/26/21 17:03 doing ok without complaints Exam Narrative: GENERAL: Obese geriatric female, in no apparent distress. HEENT: normocephalic, atraumatic. Sclera clear/white. Vision is grossly intact. exophthalmos NECK: Neck supple, non-tender without lymphadenopathy, masses or thyromegaly. CARDIOVASCULAR: Regular rate and rhythm without murmurs, gallops, or rubs. RESPIRATORY: Clear to auscultation. Breath sounds equal bilaterally. No wheezes, rales, or rhonchi. SKIN: warm, intact with no suspicious lesions or rash, good texture and turgor. NEURO: awake, alert, and oriented to person, place and time. There were no obvious focal neurologic abnormalities. EXTREMITIES: Normal range of motion. 1+ ankle edema. No calf tenderness. Objective Data Vital Signs Vital Signs: Vital Signs - 24 hr 07/26/21 20:00 07/26/21 20:59 07/26/21 22:00 Temperature 98.9 F Pulse Rate 84 64 71 Respiratory Rate 20 Blood Pressure 148/49 H Pulse Oximetry 99 07/27/21 00:00 07/27/21 04:00 07/27/21 06:00 Temperature 97.8 F Pulse Rate 69 79 64 Respiratory Rate 18 Blood Pressure 119/43 L Pulse Oximetry 96 07/27/21 08:06 07/27/21 09:03 07/27/21 09:18 Temperature Pulse Rate 71 68 Respiratory Rate Blood Pressure Pulse Oximetry 96 07/27/21 12:00 07/27/21 14:57 Temperature 97.9 F Pulse Rate 65 60 Respiratory Rate 20 Blood Pressure 121/67 Pulse Oximetry 97 Intake/Output Intake/Output: Intake & Output 07/24/21 07/25/21 07/26/21 07/27/21 23:59 23:59 23:59 23:59 Intake Total 2640 2400 2540 780 Output Total 1700 1750 1000 500 Balance 316 415 2972 280 Meds/Results Medications: Active Medications Generic Name Dose Route Start Last Admin Trade Name Freq PRN Reason Stop Dose Admin Hydrocodone Bitart/Acetaminophen 1 tab 07/23/21 05:32 07/27/21 11:46 Hydrocodone/Acetaminophen (*Crx) 7.5-325 Mg Tablet PO 1 tab Q12H PRN Administration Pain Rated 4-6 Albuterol 2 puff 07/24/21 09:48 07/27/21 02:36 Albuterol Sulfate (*Sp) Aerosol 1 Puff INHALATION 2 puff Q6HRT PRN Administration Shortness Of Breath Allopurinol 200 mg 07/23/21 08:00 07/27/21 08:06 Allopurinol 100 Mg Tablet PO 200 mg DAILY@0800 MARY Administration Alteplase, Recombinant 2 mg 07/25/21 06:01 07/25/21 06:10 Alteplase 2 Mg Vial (Cathflo) IV PUSH 2 mg ONCE PRN Administration Line Occlusion
[2021-07-26] MEDS: ATORVASTATIN 40 MG TABLET PO (20:59)
[2021-07-26] MEDS: GABAPENTIN 300 MG CAPSULE PO (20:59)
[2021-07-26] MEDS: BENZONATATE 100 MG CAPSULE 200 MG PO (21:59)
[2021-07-26 22:47] LABS: Glucose Point of Care 267 mg/dl (65-105)
[2021-07-27] VITALS (16 sets, daily range): BP systolic 119–157; BP diastolic 43–67; PULSE 51–92; RESP 18–21; TEMP 36.3–37.1; O2SAT 96–100
[2021-07-27] MEDS: ALBUTEROL SULFATE (*SP) AEROSOL 1 PUFF 2 PUFF INHALATION (02:36)
[2021-07-27 07:50] LABS: Glucose Point of Care 194 mg/dl (65-105)
[2021-07-27] MEDS: allopurinoL 100 MG TABLET 200 MG PO (08:06)
[2021-07-27] MEDS: carvediloL 3.125 MG TABLET PO ×2 (08:06→21:17)
[2021-07-27] MEDS: CYCLOBENZAPRINE HCL 10 MG TABLET PO ×2 (08:07→21:17)
[2021-07-27] MEDS: ENOXAPARIN 30 MG/0.3 ML SYRINGE SUB-Q (08:07)
[2021-07-27] MEDS: PANTOPRAZOLE 40 MG TABLET PO ×2 (08:07→16:32)
[2021-07-27] MEDS: TAMOXIFEN CITRATE (*CHEMO) 10 MG TABLET 20 MG PO (08:07)
[2021-07-27] MEDS: CLOPIDOGREL BISULFATE 75 MG TABLET PO (08:07)
[2021-07-27] MEDS: NEOMYCIN/POLYMYXIN/BACITRACIN OINTMENT PACKET 1 PACKET (11:28)
[2021-07-27] MEDS: HYDROcodone/acetaminophen (*CRX) 7.5-325 MG TABLET 1 TAB PO (11:46)
[2021-07-27] MEDS: INSULIN ASPART (*BKC) 100 UNITS/ML SUB-Q ×2 (11:46→16:36)
[2021-07-27 11:57] LABS: Glucose Point of Care 201 mg/dl (65-105)
[2021-07-27 13:47] LABS: Hematocrit 23.5 % (37.0-47.0); Hemoglobin 7.2 g/dL (12.0-15.0); Mean Corpuscular HGB Conc 30.6 g/dl (32-36); Mean Corpuscular Volume 91.4 fl (80-100); Mean Platelet Volume 9.5 fl (7.4-10.4); Platelet Count Result 596 k/mm3 (150-375); Red Blood Count 2.57 M/mm3 (4.2-5.4); Red Cell Distribution Width 15.9 % (11.5-14.5); White Blood Count 11.8 K/mm3 (4.5-10.0)
[2021-07-27 14:00] LABS: Alanine Aminotransferase 17 U/L (4-35); Albumin Level 3.2 g/dL (3.5-5.1); Alkaline Phosphatase 85 U/L (38-126); Anion Gap 4 mmol/L (8-16); Aspartate Amino Transferase 33 U/L (14-36); Bilirubin,Total 0.4 mg/dL (0.2-1.3); Blood Urea Nitrogen 28 mg/dL (7-17); Calcium 8.7 mg/dL (8.4-10.2); Carbon Dioxide 24 mmol/L (22-30); Chloride 105 mmol/L (98-107); Estimated CRCL calculation 31 ml/min; Estimated Glomerular Filt Rate 47; Glucose 291 mg/dL (65-110); Magnesium 2.2 mg/dL (1.6-2.3); Potassium 5.4 mmol/L (3.4-5.0); Sodium 133 mmol/L (137-145)
[2021-07-27 16:35] LABS: Glucose Point of Care 248 mg/dl (65-105)
--- NOTE | 2021-07-27 17:16 | PM.IMPN ---
Progress Note: A&P Assessment and Plan (1) Anemia: Code(s): D64.9 - Anemia, unspecified Status: Acute (2) COPD (chronic obstructive pulmonary disease): Code(s): J44.9 - Chronic obstructive pulmonary disease, unspecified Status: Acute (3) Neuropathy, diabetic: Code(s): E11.40 - Type 2 diabetes mellitus with diabetic neuropathy, unspecified Status: Acute (4) CHF (congestive heart failure): Code(s): I50.9 - Heart failure, unspecified Status: Acute (5) Dyslipidemia: Code(s): E78.5 - Hyperlipidemia, unspecified Status: Acute (6) Gout: Code(s): M10.9 - Gout, unspecified Status: Acute (7) Diabetes mellitus: Code(s): E11.9 - Type 2 diabetes mellitus without complications Status: Acute (8) Generalized weakness: Code(s): R53.1 - Weakness Status: Acute (9) NANCY (acute kidney injury): Code(s): N17.9 - Acute kidney failure, unspecified Status: Acute (10) Hypoglycemia: Code(s): E16.2 - Hypoglycemia, unspecified Status: Acute (11) Hyponatremia with decreased serum osmolality: Code(s): E87.1 - Hypo-osmolality and hyponatremia Status: Acute (12) Transient ischemic attack (TIA): Code(s): G45.9 - Transient cerebral ischemic attack, unspecified Status: Acute Additional Plan 07/26/21 iron studies reviewed BG close to goal NANCY improving may need one unit PRBC given advanced age heart disease and symptomatic anemia 07/27/21 renal function improving K elevated today will monitor ongoing symptomatic anemia 1Unit PRBC am labs anticipate dc tomorrow Subjective Date/time seen: 07/27/21 17:16 doing ok sitting up in chair conts to complain of weakness Exam Narrative: GENERAL: Obese geriatric female, in no apparent distress. HEENT: normocephalic, atraumatic. MMM NECK: Neck supple, non-tender without lymphadenopathy, masses or thyromegaly. CARDIOVASCULAR: Regular rate and rhythm without murmurs, gallops, or rubs. RESPIRATORY: Clear to auscultation. Breath sounds equal bilaterally. No wheezes, rales, or rhonchi. SKIN: warm, intact with no suspicious lesions or rash, good texture and turgor. NEURO: awake, alert, and oriented to person, place and time. There were no obvious focal neurologic abnormalities. EXTREMITIES: Normal range of motion. 1+ ankle edema. No calf tenderness. Objective Data Vital Signs Vital Signs: Vital Signs - 24 hr 07/26/21 20:00 07/26/21 20:59 07/26/21 22:00 Temperature 98.9 F Pulse Rate 84 64 71 Respiratory Rate 20 Blood Pressure 148/49 H Pulse Oximetry 99 07/27/21 00:00 07/27/21 04:00 07/27/21 06:00 Temperature 97.8 F Pulse Rate 69 79 64 Respiratory Rate 18 Blood Pressure 119/43 L Pulse Oximetry 96 07/27/21 08:06 07/27/21 09:03 07/27/21 09:18 Temperature Pulse Rate 71 68 Respiratory Rate Blood Pressure Pulse Oximetry 96 07/27/21 12:00 07/27/21 14:57 07/27/21 16:00 Temperature 97.9 F Pulse Rate 65 60 60 Respiratory Rate 20 Blood Pressure 121/67 Pulse Oximetry 97 Intake/Output Intake/Output: Intake & Output 07/24/21 07/25/21 07/26/21 07/27/21 23:59 23:59 23:59 23:59 Intake Total 2640 2400 2540 780 Output Total 1700 1750 1000 500 Balance 615 910 1255 280 Meds/Results Medications: Active Medications Generic Name Dose Route Start Last Admin Trade Name Freq PRN Reason Stop Dose Admin Hydrocodone Bitart/Acetaminophen 1 tab 07/23/21 05:32 07/27/21 11:46 Hydrocodone/Acetaminophen (*Crx) 7.5-325 Mg Tablet PO 1 tab Q12H PRN Administration Pain Rated 4-6 Albuterol 2 puff 07/24/21 09:48 07/27/21 02:36 Albuterol Sulfate (*Sp) Aerosol 1 Puff INHALATION 2 puff Q6HRT PRN Administration Shortness Of Breath Allopurinol 200 mg 07/23/21 08:00 07/27/21 08:06 Allopurinol 100 Mg Tablet PO 200 mg DAILY@0800 MARY Administration Alteplase, Recomb
[2021-07-27] MEDS: ATORVASTATIN 40 MG TABLET PO (21:17)
[2021-07-27] MEDS: GABAPENTIN 300 MG CAPSULE PO (21:18)
[2021-07-27 21:25] LABS: Glucose Point of Care 220 mg/dl (65-105)
[2021-07-28] VITALS (14 sets, daily range): BP systolic 129–145; BP diastolic 50–66; PULSE 55–72; RESP 16–20; TEMP 36.3–36.8; O2SAT 20–99
[2021-07-28 06:02] LABS: Basophils Absolute Auto 0.1 K/mm3 (0.0-0.1); Basophils Percent Auto 0.5 % (0.2-1.2); Eosinophils Absolute Auto 0.4 K/mm3 (0-0.3); Eosinophils Percent Auto 3.2 % (0-4.4); Hematocrit 27.3 % (37.0-47.0); Hemoglobin 8.2 g/dL (12.0-15.0); Immature Granulocyte Absolute 0.09 K/mm3 (0.00-0.031); Immature Granulocyte Percent A 0.8 % (0-0.5); Lymphocytes Absolute Auto 1.29 K/mm3 (0.9-3.2); Lymphocytes Percent Auto 11.9 % (18.3-44.2); Mean Corpuscular Hemoglobin 27.2 pg (26-34); Mean Corpuscular Volume 90.4 fl (80-100); Mean Platelet Volume 9.6 fl (7.4-10.4); Monocytes Absolute Auto 0.8 K/mm3 (0.1-0.6); Monocytes Percent Auto 7.3 % (2.6-8.5); Neutrophils Absolute Auto 8.3 K/mm3 (1.3-6.7); Neutrophils Percent Auto 76.3 % (45.5-73.1); Nucleated Red Blood Cells Perc 0.3 % (0.0-0.2); Platelet Count Result 580 k/mm3 (150-375); Red Blood Count 3.02 M/mm3 (4.2-5.4); Red Cell Distribution Width 17.2 % (11.5-14.5); White Blood Count 10.9 K/mm3 (4.5-10.0)
[2021-07-28 06:20] LABS: Alanine Aminotransferase 15 U/L (4-35); Albumin Level 3.2 g/dL (3.5-5.1); Alkaline Phosphatase 79 U/L (38-126); Anion Gap 6 mmol/L (8-16); Aspartate Amino Transferase 31 U/L (14-36); Bilirubin,Total 0.5 mg/dL (0.2-1.3); Blood Urea Nitrogen 26 mg/dL (7-17); Calcium 8.7 mg/dL (8.4-10.2); Carbon Dioxide 22 mmol/L (22-30); Chloride 107 mmol/L (98-107); Estimated CRCL calculation 31 ml/min; Estimated Glomerular Filt Rate 47; Glucose 180 mg/dL (65-110); Magnesium 2.3 mg/dL (1.6-2.3); Sodium 135 mmol/L (137-145)
[2021-07-28 07:48] LABS: Glucose Point of Care 168 mg/dl (65-105)
[2021-07-28] MEDS: CLOPIDOGREL BISULFATE 75 MG TABLET PO (08:06)
[2021-07-28] MEDS: allopurinoL 100 MG TABLET 200 MG PO (08:06)
[2021-07-28] MEDS: ENOXAPARIN 30 MG/0.3 ML SYRINGE SUB-Q (08:06)
[2021-07-28] MEDS: CYCLOBENZAPRINE HCL 10 MG TABLET PO ×2 (08:07→21:20)
[2021-07-28] MEDS: carvediloL 3.125 MG TABLET PO ×2 (08:07→21:21)
[2021-07-28] MEDS: TAMOXIFEN CITRATE (*CHEMO) 10 MG TABLET 20 MG PO (08:07)
[2021-07-28] MEDS: FERROUS SULFATE 324 MG TABLET PO (08:08)
[2021-07-28] MEDS: PANTOPRAZOLE 40 MG TABLET PO ×2 (08:08→16:42)
[2021-07-28] MEDS: DOCUSATE SODIUM 100 MG CAPSULE PO (08:08)
--- NOTE | 2021-07-28 09:11 | PM.DS ---
DS: Admitting Diagnosis Discharge Date 07/29/21 Admitting Diagnosis (1) NANCY (acute kidney injury): Code(s): N17.9 - Acute kidney failure, unspecified Status: Acute Assessment and Plan: LIKELY SECONDARY TO PRE RENAL AZOTEMIA WILL HOLD LASIX WILL HOLD LISINOPRIL IV FLUIDS REPEAT BMP IN A.M. RENAL ULTRASOUND (2) Hypoglycemia: Code(s): E16.2 - Hypoglycemia, unspecified Status: Acute Assessment and Plan: WILL HOLD SITAGLIPTIN WILL HOLD GLIMEPIRIDE WILL HOLD INSULIN CONTINUE TO MONITOR RESTART INSULIN NEEDED (3) Generalized weakness: Code(s): R53.1 - Weakness Status: Acute Assessment and Plan: LIKELY SECONDARY TO DEHYDRATION ACUTE RENAL FAILURE AND HYPOGLYCEMIA PT OT (4) Hyponatremia with decreased serum osmolality: Code(s): E87.1 - Hypo-osmolality and hyponatremia Status: Acute Assessment and Plan: LIKELY SECONDARY TO DIURESIS RECEIVING IV FLUIDS DAILY BMP DS: Discharge Diagnosis Discharge Diagnosis (1) Anemia: Code(s): D64.9 - Anemia, unspecified Status: Acute (2) COPD (chronic obstructive pulmonary disease): Code(s): J44.9 - Chronic obstructive pulmonary disease, unspecified Status: Acute (3) Neuropathy, diabetic: Code(s): E11.40 - Type 2 diabetes mellitus with diabetic neuropathy, unspecified Status: Acute (4) CHF (congestive heart failure): Code(s): I50.9 - Heart failure, unspecified Status: Acute (5) Dyslipidemia: Code(s): E78.5 - Hyperlipidemia, unspecified Status: Acute (6) Gout: Code(s): M10.9 - Gout, unspecified Status: Acute (7) Diabetes mellitus: Code(s): E11.9 - Type 2 diabetes mellitus without complications Status: Acute (8) Generalized weakness: Code(s): R53.1 - Weakness Status: Acute (9) NANCY (acute kidney injury): Code(s): N17.9 - Acute kidney failure, unspecified Status: Acute (10) Hypoglycemia: Code(s): E16.2 - Hypoglycemia, unspecified Status: Acute (11) Hyponatremia with decreased serum osmolality: Code(s): E87.1 - Hypo-osmolality and hyponatremia Status: Acute (12) Transient ischemic attack (TIA): Code(s): G45.9 - Transient cerebral ischemic attack, unspecified Status: Acute DS: Summary Hospital Course Hospital Course: 85-year-old female admitted with generalized weakness number to her TIA. MRI ruled out CVA patient symptoms resolved. During hospitalization she was noted to be hypoglycemic hyponatremic with renal failure. Renal failure resolved with IV fluid resuscitation and patient was given 1 unit of PRBCs for her chronic anemia that was symptomatic during this hospitalization. Patient reports that she felt better after blood transfusion. Diabetic medications have been adjusted at time of discharge to prevent further episodes of hypoglycemia. Her hypernatremia resolved with IV fluid resuscitation with normal saline believed to be secondary to dehydration. Patient's Lasix was decreased to 20 mg p.o. q.day the time of discharge as well. She is discharged to [facility] in stable condition with indications to follow up with both Nephrology and her primary care physician. Discharge recommendations have been reviewed with her POA and sal Stacy prior to her discharge. 07/26/21 iron studies reviewed BG close to goal NANCY improving may need one unit PRBC given advanced age heart disease and symptomatic anemia 07/27/21 renal function improving K elevated today will monitor ongoing symptomatic anemia 1Unit PRBC am labs anticipate dc tomorrow 07/28/21 renal function appears to be at baseline K improved BG near goal unit of PRBC received by pt just before dc pt complained of abd pain d/c held and CT scan ordered 07/29/21 CT abdomen negative for any acute findings Patient's abdominal pain has resolved Discharge to nursing home facilities to condition pat
[2021-07-28 09:43] LABS: EDCOVIDSCREEN Negative (Negative)
[2021-07-28] MEDS: HYDROcodone/acetaminophen (*CRX) 7.5-325 MG TABLET 1 TAB PO (11:18)
[2021-07-28 11:33] LABS: Glucose Point of Care 222 mg/dl (65-105)
[2021-07-28] MEDS: INSULIN ASPART (*BKC) 100 UNITS/ML SUB-Q (11:57)
--- NOTE | 2021-07-28 14:32 | PM.IMPN ---
Progress Note: A&P Assessment and Plan (1) Anemia: Code(s): D64.9 - Anemia, unspecified Status: Acute (2) COPD (chronic obstructive pulmonary disease): Code(s): J44.9 - Chronic obstructive pulmonary disease, unspecified Status: Acute (3) Neuropathy, diabetic: Code(s): E11.40 - Type 2 diabetes mellitus with diabetic neuropathy, unspecified Status: Acute (4) CHF (congestive heart failure): Code(s): I50.9 - Heart failure, unspecified Status: Acute (5) Dyslipidemia: Code(s): E78.5 - Hyperlipidemia, unspecified Status: Acute (6) Gout: Code(s): M10.9 - Gout, unspecified Status: Acute (7) Diabetes mellitus: Code(s): E11.9 - Type 2 diabetes mellitus without complications Status: Acute (8) Generalized weakness: Code(s): R53.1 - Weakness Status: Acute (9) NANCY (acute kidney injury): Code(s): N17.9 - Acute kidney failure, unspecified Status: Acute (10) Hypoglycemia: Code(s): E16.2 - Hypoglycemia, unspecified Status: Acute (11) Hyponatremia with decreased serum osmolality: Code(s): E87.1 - Hypo-osmolality and hyponatremia Status: Acute (12) Transient ischemic attack (TIA): Code(s): G45.9 - Transient cerebral ischemic attack, unspecified Status: Acute Additional Plan 07/26/21 iron studies reviewed BG close to goal NANCY improving may need one unit PRBC given advanced age heart disease and symptomatic anemia 07/27/21 renal function improving K elevated today will monitor ongoing symptomatic anemia 1Unit PRBC am labs anticipate dc tomorrow 07/28/21 renal function appears to be at baseline K improved BG near goal unit of PRBC received by pt just before dc pt complained of abd pain d/c held and CT scan ordered Subjective Date/time seen: 07/28/21 14:32 pt stated she was feeling better today, but then started to complain of abd pain with loss of appetite. Last BM 2 days ago. denies symptoms like this previously no fever + nauesa no vomiting generalized abd pain across entire abdomen, quality unable to be expressed Exam Narrative: GENERAL: Obese geriatric female, in no apparent distress. HEENT: normocephalic, atraumatic. MMM NECK: Neck supple, non-tender without lymphadenopathy, masses or thyromegaly. CARDIOVASCULAR: Regular rate and rhythm without murmurs, gallops, or rubs. RESPIRATORY: Clear to auscultation. Breath sounds equal bilaterally. No wheezes, rales, or rhonchi. SKIN: warm, intact with no suspicious lesions or rash, good texture and turgor. NEURO: awake, alert, and oriented to person, place and time. There were no obvious focal neurologic abnormalities. EXTREMITIES: Normal range of motion. 1+ ankle edema. No calf tenderness. Objective Data Vital Signs Vital Signs: Vital Signs - 24 hr 07/27/21 14:57 07/27/21 16:00 07/27/21 20:00 Temperature 97.9 F Pulse Rate 60 60 75 Respiratory Rate 20 Blood Pressure 121/67 Pulse Oximetry 97 07/27/21 21:06 07/27/21 21:17 07/27/21 21:25 Temperature 98.0 F 98.7 F Pulse Rate 92 92 51 L Respiratory Rate 21 H 21 H Blood Pressure 145/55 H 157/63 H Pulse Oximetry 100 100 07/27/21 22:00 07/27/21 22:25 07/27/21 23:25 Temperature 98.0 F 97.5 F L 97.3 F L Pulse Rate 92 53 L 53 L Respiratory Rate 21 H 20 21 H Blood Pressure 145/55 H 137/57 L 124/51 L Pulse Oximetry 100 98 100 07/28/21 00:00 07/28/21 00:25 07/28/21 04:00 Temperature 97.7 F Pulse Rate 63 55 L 68 Respiratory Rate 20 Blood Pressure 143/54 H Pulse Oximetry 20 L 07/28/21 06:00 07/28/21 08:07 07/28/21 08:08 Temperature 98.3 F Pulse Rate 62 72 65 Respiratory Rate 20 Blood Pressure 129/50 L Pulse Oximetry 97 94 07/28/21 12:00 07/28/21 14:00 Temperature 98.2 F Pulse Rate 62 55 L Respiratory Rate 16 Blood Pressure 131/66 Pulse Oximetry 99 Intake/Output Intake/Output: Intake & Output
--- NOTE | 2021-07-28 14:54 | PCOTNOTE ---
Attempted to see patient twice this date. First attempt, patient was sleeping soundly and did not disturb. Second attempt, patient was going for testing.
--- NOTE | 2021-07-28 14:55 | PC.NURSE ---
On 07/28/21, the student, [Moraima Lewis], provided care and completed [facility] documentation on this patient. I have reviewed the student's documentation and agree with the findings.
[2021-07-28 18:29] LABS: Glucose Point of Care 192 mg/dl (65-105)
[2021-07-28] MEDS: ATORVASTATIN 40 MG TABLET PO (21:20)
[2021-07-28] MEDS: GABAPENTIN 300 MG CAPSULE PO (21:20)
[2021-07-28 21:29] LABS: Glucose Point of Care 227 mg/dl (65-105)
[2021-07-29 04:00] VITALS: PULSE 69
[2021-07-29 04:47] VITALS: BP 144/55; PULSE 91; RESP 20; TEMP 36.4; O2SAT 100
[2021-07-29 08:00] VITALS: PULSE 70
[2021-07-29 08:12] LABS: Glucose Point of Care 214 mg/dl (65-105)
[2021-07-29] MEDS: PANTOPRAZOLE 40 MG TABLET PO (08:48)
[2021-07-29] MEDS: CLOPIDOGREL BISULFATE 75 MG TABLET PO (08:48)
[2021-07-29 08:49] VITALS: PULSE 72
[2021-07-29] MEDS: allopurinoL 100 MG TABLET 200 MG PO (08:49)
[2021-07-29] MEDS: DOCUSATE SODIUM 100 MG CAPSULE PO (08:49)
[2021-07-29] MEDS: ENOXAPARIN 30 MG/0.3 ML SYRINGE SUB-Q (08:49)
[2021-07-29] MEDS: FERROUS SULFATE 324 MG TABLET PO (08:49)
[2021-07-29] MEDS: carvediloL 3.125 MG TABLET PO (08:49)
[2021-07-29] MEDS: TAMOXIFEN CITRATE (*CHEMO) 10 MG TABLET 20 MG PO (08:50)
[2021-07-29] MEDS: INSULIN GLARGINE (*BKC) 100 UNITS/ML SUB-Q (08:50)
[2021-07-29] MEDS: INSULIN ASPART (*BKC) 100 UNITS/ML SUB-Q ×2 (08:50→12:45)
[2021-07-29] MEDS: CYCLOBENZAPRINE HCL 10 MG TABLET PO (08:50)
[2021-07-29 11:47] LABS: Glucose Point of Care 231 mg/dl (65-105)
[2021-07-29 12:00] VITALS: PULSE 62
== END 2021-07-29 15:01 | DRG 683 ==
LOC: ANHED 16:39 → ANH2MED 20:01
PROVIDERS: Nurse Practitioner; Nurse Practitioner Adult Health; Admitting Provider Internal Medicine; Emergency Provider Emergency Medicine; PCP Internal Medicine; Visit Provider Hospitalist
DX: N17.9 Acute kidney failure, unspecified (principal); E87.1 Hypo-osmolality and hyponatremia; G45.9 Transient cerebral ischemic attack, unspecified; Z20.822 Contact with and (suspected) exposure to COVID-19; D64.9 Anemia, unspecified; E11.649 Type 2 diabetes mellitus with hypoglycemia without coma; E11.42 Type 2 diabetes mellitus with diabetic polyneuropathy; E78.5 Hyperlipidemia, unspecified; I11.0 Hypertensive heart disease with heart failure; I50.9 Heart failure, unspecified; I25.10 Atherosclerotic heart disease of native coronary artery without angina pectoris; J44.9 Chronic obstructive pulmonary disease, unspecified; M10.9 Gout, unspecified; R53.1 Weakness; R47.81 Slurred speech; Z87.891 Personal history of nicotine dependence; Z79.02 Long term (current) use of antithrombotics/antiplatelets; Z79.4 Long term (current) use of insulin; Z79.84 Long term (current) use of oral hypoglycemic drugs
CPT/HCPCS: 36415; 36430; 36569; 71045; 74176; 76775; 80048; 80053; 81001; 82948; 83540; 83550; 83735; 83880; 84484; 85025; 85027; 85610; 85730; 86850; 86900; 86901; 86920; 87426; 93005; 94640; 96361; 96374; 97110; 97161; 97165; 97530; 97535; 99285; A9270; C1751; C9803; G0378; J1650; J1815; J2997; J7030; J7120; P9016; U0003; U0005